=== PATIENT | female | born 2000 | race Two or more races ===

== ENCOUNTER → 2022-02-11 | Outpatient (CLI) | payer OTHER | LOC: M WHC 14:48 | PROVIDERS: ATTEND Physician Assistant | DX: D48.62 Neoplasm of uncertain behavior of left breast (principal); N62 Hypertrophy of breast; Z53.9 Procedure and treatment not carried out, unspecified reason ==

== ENCOUNTER → 2022-02-26 | Outpatient (CLI) | payer OTHER | LOC: M WHC 09:03 | PROVIDERS: ATTEND Plastic Surgery Surgery of the Hand | DX: D48.62 Neoplasm of uncertain behavior of left breast (principal); N62 Hypertrophy of breast; N63.10 Unspecified lump in the right breast, unspecified quadrant; N63.20 Unspecified lump in the left breast, unspecified quadrant | CPT/HCPCS: 76642; 77066; G0279 ==

== ENCOUNTER → 2022-04-28 | Outpatient (CLI) | payer OTHER ==
[2022-04-28 14:51] VITALS: BP 120/82
== END ==
LOC: M WHCPRO 13:34
PROVIDERS: ATTEND Surgery
DX: R92.8 Other abnormal and inconclusive findings on diagnostic imaging of breast (principal); N63.24 Unspecified lump in the left breast, lower inner quadrant

== ENCOUNTER 2022-10-19 05:11 | Emergency (ER) | payer OTHER ==
[~2022-10-19] VITALS: Ht 170.2 cm; Wt 100.9 kg
[2022-10-19] MEDS ORDERED: ACET32TAB PO (05:17)
[2022-10-19] MEDS ORDERED: MACR100C43 PO (05:17)
[2022-10-19 07:14] VITALS: BP 127/77
[2022-10-19] MEDS ORDERED: NS 1,000 ML IV ONE (08:10)
[2022-10-19] MEDS ORDERED: KETOROLAC 30 MG/ML 1ML VIAL IV ONE (08:10)
[2022-10-19 08:35] LABS: BASO % 0.5 % (0.0-1.0); EOS # 0.3 10^3/uL (0.0-0.5); EOS % 5.1 % (0.0-3.0); HEMOGLOBIN 12.9 g/dl (12.0-15.5); LYMPH # 1.6 10^3/uL (1.5-5.0); LYMPH % 24.3 % (24.0-44.0); MEAN CORPUSCULAR HEMOGLOBIN 27.6 pg (27.0-33.0); MEAN CORPUSCULAR HGB CONC 30.7 g/dl (32.0-36.5); MEAN CORPUSCULAR VOLUME 89.9 fl (80.0-96.0); MONO # 0.3 10^3/uL (0.0-0.8); MONO % 4.7 % (2.0-8.0); NEUTROPHILS # 4.2 10^3/uL (1.5-8.5); NEUTROPHILS % 65.2 % (36.0-66.0); PLATELET COUNT, AUTOMATED 323 10^3/uL (150-450); RED BLOOD COUNT 4.67 10^6/uL (4.00-5.40); WHITE BLOOD COUNT 6.4 10^3/uL (4.0-10.0)
[2022-10-19 09:02] LABS: ALBUMIN 3.6 G/DL (3.2-5.2); ALKALINE PHOSPHATASE 58 U/L (46-116); ALT/SGPT 28 U/L (7.0-40); AST/SGOT 18 U/L (<34); BILIRUBIN,DIRECT 0.1 MG/DL (<0.4); BILIRUBIN,TOTAL 0.3 MG/DL (0.3-1.2); BLOOD UREA NITROGEN 9 MG/DL (9-23); CALCIUM LEVEL 8.9 MG/DL (8.5-10.1); CARBON DIOXIDE LEVEL 30 MMOL/L (20-31); CHLORIDE LEVEL 104 MMOL/L (98-107); CREATININE FOR GFR 0.54 MG/DL (0.55-1.30); GLOMERULAR FILTRATION RATE > 60.0 (>60); GLUCOSE, FASTING 99 MG/DL (60-100); POTASSIUM SERUM 4.2 MMOL/L (3.5-5.1); SODIUM LEVEL 140 MMOL/L (136-145); TOTAL PROTEIN 6.9 G/DL (5.7-8.2)
[2022-10-19 09:32] LABS: HCG, SERUM QUALITATIVE NEGATIVE (NEGATIVE)
[2022-10-19] MEDS ORDERED: ISOVUE-370 76% 100ML VIAL As Ordered ONE (09:39)
[2022-10-19] MEDS ORDERED: ONDA4TAB6 PO (11:02)
== END 2022-10-19 11:09 | disposition home or self-care (01) ==
LOC: M ED 05:11
DX: N63.20 Unspecified lump in the left breast, unspecified quadrant (principal); R10.32 Left lower quadrant pain; Z87.448 Personal history of other diseases of urinary system; F17.200 Nicotine dependence, unspecified, uncomplicated; R16.0 Hepatomegaly, not elsewhere classified; K76.0 Fatty (change of) liver, not elsewhere classified; Z91.040 Latex allergy status
CPT/HCPCS: 74177; 76856; 80048; 80076; 81001; 83605; 84703; 85025; 96374; 99284; J1885; Q9967

== ENCOUNTER 2022-10-29 20:10 | Emergency (ER) | payer OTHER ==
[~2022-10-29] VITALS: Ht 170.2 cm; Wt 97.0 kg
[~2022-10-29 20:10] MED LIST: ACET32TAB PO; MACR100C43 PO; ONDA4TAB6 PO
[2022-10-29 22:51] LABS: HCG, SERUM QUALITATIVE NEGATIVE (NEGATIVE)
[2022-10-29 23:04] LABS: HIV 1&2 SCREEN CENTAUR NEGATIVE (NEGATIVE)
[2022-10-29 23:46] LABS: GC DNA AMPLIFICATION NEGATIVE (NEGATIVE)
[2022-10-30 01:38] VITALS: BP 126/79
== END 2022-10-30 01:39 | disposition home or self-care (01) ==
LOC: M ED 20:10
DX: M25.562 Pain in left knee (principal); T74.11XA Adult physical abuse, confirmed, initial encounter; F32.9 Major depressive disorder, single episode, unspecified; F12.10 Cannabis abuse, uncomplicated; Z91.040 Latex allergy status

== ENCOUNTER 2022-11-09 07:56 | Observation (INO) | payer OTHER ==
[~2022-11-09] VITALS: Ht 170.2 cm; Wt 95.9 kg
[~2022-11-09 07:56] MED LIST changes: +BUPIVACAINE HCL 0.25% 30ML VIAL As Ordered ONE; +EPINEPHrine INJ 1 MG/ML 1ML AMP As Ordered ONE; +HEPARIN SOD (PORCINE) 5000UNITS/ML 1ML VIAL/SYRINGE SQ ONE; +LIDOCAINE 1% SDV 30ML VIAL As Ordered ONE; +LIDOCAINE 2% 100MG/5ML SDV (FOR ANES.) As Ordered ONE; +ONDANSETRON 4MG 2ML VIAL As Ordered ONE; +PROA1AER2 IN; +ROCURONIUM BROMIDE 50MG/5ML VIAL As Ordered ONE; +SUGAMMADEX SODIUM 500 MG/5 ML VIAL (BRIDION) As Ordered ONE; +ceFAZolin SOD 2 GM in IV 1 EA IV ONE; +propofoL 200 MG/20 ML VIAL As Ordered ONE
[2022-11-09] MEDS ORDERED: BUPIVACAINE LIPOSOME/PF 1.3% 20ML VIAL (13.3MG/ML)(EXPAREL) As Ordered ONE (07:58)
[2022-11-09] MEDS ORDERED: GENTAMICIN SULF 80MG/2ML VIAL As Ordered ONE (07:58)
[2022-11-09] MEDS ORDERED: LIDOCAINE 1% MDV 20ML VIAL As Ordered ONE (08:00)
[2022-11-09] MEDS ORDERED: MIDAZOLAM INJ 2MG/2ML VIAL As Ordered ONE (08:43)
[2022-11-09] MEDS ORDERED: fentaNYL 250 MCG/5 ML INJECTION As Ordered ONE (08:43)
[2022-11-09] MEDS ORDERED: LR 1,000 ML IV SCH ×2 (08:45→16:40)
[2022-11-09] MEDS: HEPARIN SOD (PORCINE) 5000UNITS/ML 1ML VIAL/SYRINGE SQ SCH ×2 (09:09→22:11)
[2022-11-09] MEDS ORDERED: ACETAMINOPHEN 1000MG 100ML IV BAG As Ordered ONE (09:23)
[2022-11-09] MEDS ORDERED: ROCURONIUM BROMIDE 50MG/5ML VIAL As Ordered ONE ×2 (10:03→12:11)
[2022-11-09] MEDS ORDERED: HYDROmorphone HCL 2MG/ML 1ML VIAL As Ordered ONE (11:49)
[2022-11-09] MEDS ORDERED: ceFAZolin 2 GM/D5W 50 ML IV BAG As Ordered ONE (12:46)
[2022-11-09] MEDS ORDERED: ONDANSETRON 4MG 2ML VIAL IV PRN ×2 (12:50→16:40)
[2022-11-09] MEDS ORDERED: traMADol 50 MG TAB PO PRN (12:50)
[2022-11-09] MEDS: LR 1,000 ML IV SCH (12:50)
[2022-11-09] MEDS ORDERED: fentaNYL 100 MCG/2 ML INJECTION IV PRN (16:40)
[2022-11-09] MEDS ORDERED: oxyCODONE 5MG TAB PO PRN (16:40)
[2022-11-09] MEDS: HYDROMORPHONE HCL 0.5 MG/ 0.5 ML SYRINGE IV PRN ×4 (17:10→17:36)
[2022-11-09 18:15] VITALS: BP 136/83
[2022-11-09 18:45] VITALS: BP 135/80
[2022-11-09 19:15] VITALS: BP 133/80
[2022-11-09 20:06] VITALS: BP 133/80
[2022-11-09] MEDS: ceFAZolin SOD 2 GM in IV 1 EA IV SCH (20:18)
[2022-11-09] MEDS: MORPHINE 2 MG/ML 1ML VIAL IV PRN (21:17)
[2022-11-09 21:45] VITALS: BP 133/78
[2022-11-09 23:39] VITALS: BP 136/84
[2022-11-10] MEDS: MORPHINE 2 MG/ML 1ML VIAL IV PRN ×2 (01:25→05:30)
[2022-11-10 03:37] VITALS: BP 126/66
[2022-11-10] MEDS: ceFAZolin SOD 2 GM in IV 1 EA IV SCH (03:56)
[2022-11-10] MEDS: ACETAMINOPHEN TAB 650MG DOSE (2X325MG) PO PRN ×2 (03:56→12:47)
[2022-11-10] MEDS: HEPARIN SOD (PORCINE) 5000UNITS/ML 1ML VIAL/SYRINGE SQ SCH (05:32)
[2022-11-10] MEDS: LR 1,000 ML IV SCH (05:33)
[2022-11-10 06:00] VITALS: BP 126/68
[2022-11-10] MEDS: KETOROLAC TROMETHAMINE 10 MG TAB PO PRN ×2 (08:48→14:42)
[2022-11-10 10:00] VITALS: BP 137/77
[2022-11-10] MEDS ORDERED: HOME MED LIST COMPLETE! XX SCH (11:00)
[2022-11-10] MEDS ORDERED: KETO10TAB PO (13:46)
[2022-11-10] MEDS ORDERED: OXYC1TAB23 PO (13:47)
== END 2022-11-10 14:40 | disposition home or self-care (01) ==
LOC: M SDC 07:56 → M MS5PR 07:57
PROVIDERS: ADMIT Surgery; ATTEND Plastic Surgery Surgery of the Hand
DX: N60.22 Fibroadenosis of left breast (principal); N62 Hypertrophy of breast; Z91.040 Latex allergy status
CPT/HCPCS: 19120; 19125; 19126; 19318; 36415; 76942; 81025; 86850; 86900; 86901; 88305; 88307; 96361; 96365; 96366; 96372; 96375; 96376; A4648; C9290; J0131; J0171; J0690; J1100; J1170; J1580; J2250; J2405; J3010; S0020

== ENCOUNTER 2022-11-12 14:45 | Emergency (ER) | payer OTHER ==
[~2022-11-12] VITALS: Ht 170.2 cm; Wt 92.7 kg
[~2022-11-12 14:45] MED LIST changes: -BUPIVACAINE HCL 0.25% 30ML VIAL As Ordered ONE; -EPINEPHrine INJ 1 MG/ML 1ML AMP As Ordered ONE; -HEPARIN SOD (PORCINE) 5000UNITS/ML 1ML VIAL/SYRINGE SQ ONE; +KETO10TAB PO; -LIDOCAINE 1% SDV 30ML VIAL As Ordered ONE; -LIDOCAINE 2% 100MG/5ML SDV (FOR ANES.) As Ordered ONE; -ONDANSETRON 4MG 2ML VIAL As Ordered ONE; +OXYC1TAB23 PO; -ROCURONIUM BROMIDE 50MG/5ML VIAL As Ordered ONE; -SUGAMMADEX SODIUM 500 MG/5 ML VIAL (BRIDION) As Ordered ONE; -ceFAZolin SOD 2 GM in IV 1 EA IV ONE; -propofoL 200 MG/20 ML VIAL As Ordered ONE
[2022-11-12] MEDS ORDERED: IBUP200C25 PO (14:56)
[2022-11-12 17:32] VITALS: BP 157/79
== END 2022-11-12 17:33 | disposition home or self-care (01) ==
LOC: M ED 14:45
DX: M79.603 Pain in arm, unspecified (principal); G89.18 Other acute postprocedural pain; F41.9 Anxiety disorder, unspecified; F32.9 Major depressive disorder, single episode, unspecified; G89.29 Other chronic pain; M54.9 Dorsalgia, unspecified; Z91.040 Latex allergy status

== ENCOUNTER 2022-11-28 20:10 | Emergency (ER) | payer OTHER ==
[~2022-11-28] VITALS: Ht 170.2 cm; Wt 98.1 kg
[~2022-11-28 20:10] MED LIST changes: +IBUP200C25 PO
[2022-11-28 23:12] VITALS: BP 152/83
== END 2022-11-28 23:15 | disposition home or self-care (01) ==
LOC: M ED 20:10
DX: Z48.817 Encounter for surgical aftercare following surgery on the skin and subcutaneous tissue (principal); L76.34 Postprocedural seroma of skin and subcutaneous tissue following other procedure; Z91.040 Latex allergy status